=== PATIENT | male | born 1985 | race Caucasian/White ===

== ENCOUNTER 2020-12-15 04:13 | Emergency (ER) | payer MEDICAID ==
[~2020-12-15] VITALS: Ht 177.8 cm; Wt 63.6 kg
[~2020-12-15 04:13] MED LIST: ONDA8TAB9 PO
[2020-12-15] MEDS ORDERED: albuterol 2.5 MG/3 ML nebule NEB ONE (04:40)
[2020-12-15] MEDS ORDERED: dexamethasone 4mg tablet PO ONE (04:40)
[2020-12-15] MEDS ORDERED: ipratropium/albuterol 3ml nebule NEB STA (05:05)
[2020-12-15] MEDS ORDERED: ALBU8HFA PO (05:25)
[2020-12-15 05:58] VITALS: BP 97/67
== END 2020-12-15 05:59 | disposition home or self-care (01) ==
LOC: ER 04:14
DX: J45.901 Unspecified asthma with (acute) exacerbation (principal); Z79.899 Other long term (current) drug therapy
CPT/HCPCS: 94640; 99283